=== PATIENT | female | born 1995 | race Caucasian/White ===

== ENCOUNTER 2022-03-19 09:42 | Outpatient (CLI) | payer BC, SELFPAY ==
--- NOTE | ~2022-03-19 | US_ITS ---
EXAMINATION: US OB /maternal detail DATE: 03/19/2022 10:22 INDICATION: anatomic survey. TECHNIQUE: Real-time ultrasound of the pelvis was performed. COMPARISON: None. FINDINGS: There is a single living fetus in vertex presentation. The placenta is anterior, 4.8 cm from the cer vix. The cervical length is normal. heart rate is 148 beats per minute (bpm). The amniotic flui d volume is subjectively normal. The following biometric data were obtained: Biparietal diameter (BPD): 5.6 cm; head circumference (HC): 21.1 cm; abdominal circumference (AC): 17 .8 cm; femur length (FL): 3.8 cm. These measurements are concordant. Estimated weight is 518 g +/- 78 g, which correlates with the >97th percentile when 07/29/22 is used as estimated date of delivery. As single measurements, these parameters are each equal to the following estimated gestational ages: BPD: 23 weeks 1 days. HC: 23 weeks 1 days. AC: 22 weeks 5 days. FL: 22 weeks 2 days. estimated gestational age based solely on measurements from this exam is 22 weeks 6 days +/- 1 weeks 4 days. The cerebral ventricles, cerebellum, cisterna magna, nuchal fold, and visualized portions of the spin e are normal. The heart is normal. The diaphragm, stomach, kidneys, and bladder are normal. There are two umbilical arteries to yield a 3-vessel cord. The cord insertion is normal. IMPRESSION: 1. Single living fetus in vertex presentation. 2. Large for gestational age. Estimated weight is 518 g +/- 78 g, which correlates with the >9 7th percentile when 07/29/22 is used as estimated date of delivery. 3. Normal anatomic survey. Reviewed, dictated and finalized at location A. [facility] CHIEF IMPRESSION: 1. Single living fetus in vertex presentation. 2. Large for gestational age. Estimated weight is 518 g +/- 78 g, which correlates with the >97th percentile when 07/29/22 is used as estimated date of delivery. 3. Normal anatomic survey.
== END 2022-03-19 09:43 | disposition home or self-care (01) ==
DX: Z34.82 Encounter for supervision of other normal pregnancy, second trimester (principal); Z3A.22 22 weeks gestation of pregnancy
CPT/HCPCS: 76805

== ENCOUNTER 2022-04-05 09:49 | Outpatient (CLI) | payer BC, SELFPAY ==
--- NOTE | ~2022-04-05 | US_ITS ---
EXAMINATION: US OB follow up DATE: 04/05/2022 10:36 INDICATION: Maternal care for excessive growth, second trimester. TECHNIQUE: Real-time ultrasound of the pelvis was performed. COMPARISON: Ultrasound 03/19/2022 FINDINGS: There is a single living fetus in vertex presentation. The placenta is anterior. The cervical length is 3.8 cm on transabdominal images, which is normal. heart rate is 132 beats per minute (bpm). The amniotic fluid index is 20.4 cm, which is normal. The following biometric data were obtained: Biparietal diameter (BPD): 6.4 cm; head circumference (HC): 23.4 cm; abdominal circumference (AC): 21 .1 cm; femur length (FL): 4.5 cm. These measurements are discordant with FL/BPD < 5th percentile. Estimated weight is 794 g +/- 119 g, which correlates with the >97th percentile when 07/29/22 is used as estimated date of delivery. As single measurements, these parameters are each equal to the following estimated gestational ages: BPD: 25 weeks 6 days. HC: 25 weeks 3 days. AC: 25 weeks 5 days. FL: 24 weeks 5 days. estimated gestational age based solely on measurements from this exam is 25 weeks 3 days +/- 1 weeks 5 days. IMPRESSION: 1. Single living fetus in vertex presentation. 2. Large for gestational age. Estimated weight is 794 g +/- 119 g, which correlates with the > 97th percentile when 07/29/22 is used as estimated date of delivery. 3. Discordant biometrics with low FL/BPD. Reviewed, dictated and finalized at location A. [facility] [employer] IMPRESSION: 1. Single living fetus in vertex presentation. 2. Large for gestational age. Estimated weight is 794 g +/- 119 g, which correlates with the >97th percentile when 07/29/22 is used as estimated date of delivery. 3. Discordant biometrics with low FL/BPD.
== END 2022-04-05 09:50 | disposition home or self-care (01) ==
DX: O36.62X1 Maternal care for excessive fetal growth, second trimester, fetus 1 (principal); Z3A.25 25 weeks gestation of pregnancy
CPT/HCPCS: 76816